=== PATIENT | female | born 1945 | race Caucasian/White ===

== ENCOUNTER → 2017-02-19 | Outpatient (CLI) | payer OTHER ==
[2017-02-19 08:30] LABS: Basophils # (auto) 0 uL; Basophils % (auto) 0.7 % (0.0-2.0); CONDITION Y; Eosinophils # (auto) 0.2 uL; Eosinophils % (auto) 2.2 % (0.0-7.0); Hematocrit 42.2 % (36.0-46.0); Hemoglobin 14.3 g/dL (12.2-16.2); Lymphocytes # (auto) 2.6 uL; Lymphocytes % (auto) 34.4 % (10.0-50.0); Mean Corpuscular Hemoglobin 30.6 pg (28.0-32.0); Mean Corpuscular Hgb Conc. 33.9 g/dL (32.0-36.0); Mean Corpuscular Volume 90.3 fL (80.0-100.0); Mean Platelet Volume 8.7 fL (7.4-10.4); Monocytes # (auto) 0.5 uL; Monocytes % (auto) 6.8 % (0.0-12.0); Neutrophils # (auto) 4.2 uL; Neutrophils % (auto) 55.9 % (37.0-80.0); Platelet Count (auto) 284 10^3/uL (140-450); Red Cell Distribution Width 14.1 % (11.6-16.0); White Blood Cell 7.5 10^3/uL (4.4-10.8)
[2017-02-19 08:32] LABS: Urine Bilirubin Negative (Negative); Urine Blood Negative /uL (Negative); Urine Color Yellow (Yellow); Urine Glucose Normal (Normal); Urine Ketone Negative (Negative); Urine Mucus FEW (None Seen); Urine Nitrite Negative (Negative); Urine RBC 2 /hpf (0 - 4); Urine Squamous Epithelial Cell MOD /hpf (<5); Urine Urobilinogen Normal (Negative)
[2017-02-19 09:05] LABS: Albumin 3.5 g/dL (3.4-5.0); BUN/Creatinine Ratio 18.6; Bilirubin, Total 0.8 mg/dL (0.2-1.0); Calcium 8.8 mg/dL (8.5-10.1); Total Protein 7.2 g/dL (6.4-8.2)
== END | disposition home or self-care (01) ==
LOC: LAB 07:03
PROVIDERS: ATTEND Nurse Practitioner
DX: I10 Essential (primary) hypertension (principal); Z68.29 Body mass index [BMI] 29.0-29.9, adult; Z12.11 Encounter for screening for malignant neoplasm of colon
CPT/HCPCS: 36415; 80053; 80061; 81001; 82270; 83036; 84443; 85025

== ENCOUNTER 2017-09-11 08:26 | Day surgery (SDC) | payer OTHER ==
[2017-09-10 12:38] LABS: Basophils # (auto) 0.1 uL; Eosinophils # (auto) 0.1 uL; Eosinophils % (auto) 1.1 % (0.0-7.0); Hemoglobin 14.7 g/dL (12.2-16.2); Lymphocytes # (auto) 2.4 uL; Lymphocytes % (auto) 28.6 % (10.0-50.0); Mean Corpuscular Hemoglobin 30.7 pg (28.0-32.0); Mean Corpuscular Hgb Conc. 34.1 g/dL (32.0-36.0); Monocytes # (auto) 0.7 uL; Monocytes % (auto) 8.5 % (0.0-12.0); Neutrophils # (auto) 5.1 uL; Neutrophils % (auto) 60.8 % (37.0-80.0); Platelet Count (auto) 292 10^3/uL (140-450); Red Blood Cells 4.78 10^6/uL (4.0-5.20); Red Cell Distribution Width 13.9 % (11.8-14.3); White Blood Cell 8.5 10^3/uL (4.4-10.8)
[2017-09-10 12:56] LABS: INR 0.94 (0.9-1.15); Partial Thromboplastin Time 25.8 sec (22.64-33.71); Prothrombin Time 10.2 sec (9.37-12.3)
[2017-09-10 12:57] LABS: Albumin 3.7 g/dL (3.4-5.0); BUN/Creatinine Ratio 28.6; Bilirubin, Total 0.5 mg/dL (0.2-1.0); Calcium 8.7 mg/dL (8.5-10.1); Potassium 3.7 mmol/L (3.5-5.1); Total Protein 7.6 g/dL (6.4-8.2)
[~2017-09-11] VITALS: Ht 149.9 cm; Wt 65.8 kg
[~2017-09-11 08:26] MED LIST: AMLO1TAB92 PO; ATOR20TA50 PO; HYDR12.56 PO
[2017-09-11] MEDS ORDERED: ceFAZolin 1GM/50ML 50 ML IV ONE (09:43)
[2017-09-11] MEDS ORDERED: BUPIVACAINE 0.25% INJ 50ML VIAL ONE (09:45)
[2017-09-11] MEDS ORDERED: MIDAZOLAM HCL 1MG/1ML-2 ML VIAL ONE (09:57)
[2017-09-11] MEDS ORDERED: LIDOCAINE HCL 2 %PF INJ 10ML AMP IJ ONE (09:57)
[2017-09-11] MEDS ORDERED: LIDOCAINE HCL 2% TOP JELLY 5ML TOP ONE (09:59)
[2017-09-11] MEDS ORDERED: PROPOFOL 10 MG/ML 20 ML IV ONE (09:59)
[2017-09-11] MEDS ORDERED: fentaNYL CITRATE 100 MCG/2 ML VL ONE (10:09)
[2017-09-11] MEDS ORDERED: KETOROLAC TROMETH 30 MG/ML 1ML VIAL ONE (10:28)
[2017-09-11] MEDS ORDERED: ONDANSETRON HCL 4 MG/2 ML VIAL IV ONE (10:30)
[2017-09-11] MEDS ORDERED: hydrALAZINE HCL 20 MG/ML VL IV PRN (10:30)
[2017-09-11] MEDS ORDERED: MORPHINE SULFATE 4 MG/ML SYR/VIAL IV PRN (10:30)
[2017-09-11] MEDS ORDERED: NALOXONE HCL 0.4 MG/ML VIAL IV PRN (10:30)
[2017-09-11 11:51] VITALS: BP 128/77
== END 2017-09-11 11:51 | disposition home or self-care (01) ==
LOC: SUR 08:26
PROVIDERS: ATTEND Surgery
DX: M67.432 Ganglion, left wrist (principal); E66.9 Obesity, unspecified; Z68.29 Body mass index [BMI] 29.0-29.9, adult; Z88.8 Allergy status to other drugs, medicaments and biological substances; I10 Essential (primary) hypertension; E78.00 Pure hypercholesterolemia, unspecified
CPT/HCPCS: 25111; 36415; 80053; 85025; 85610; 85730; 88304; J0690; J1885; J2250; J2704; J3010; J3490

== ENCOUNTER → 2017-10-29 | Outpatient (CLI) | payer OTHER ==
[2017-10-29 08:40] LABS: Basophils # (auto) 0 uL; Basophils % (auto) 0.7 % (0.0-2.0); Eosinophils # (auto) 0.1 uL; Eosinophils % (auto) 1.5 % (0.0-7.0); Hematocrit 42.7 % (36.0-46.0); Hemoglobin 14.5 g/dL (12.2-16.2); Lymphocytes % (auto) 30.1 % (10.0-50.0); Mean Corpuscular Hemoglobin 30.7 pg (28.0-32.0); Mean Corpuscular Volume 90.4 fL (80.0-100.0); Monocytes # (auto) 0.6 uL; Monocytes % (auto) 8.3 % (0.0-12.0); Neutrophils % (auto) 59.4 % (37.0-80.0); Platelet Count (auto) 249 10^3/uL (140-450); Red Blood Cells 4.73 10^6/uL (4.0-5.20); Red Cell Distribution Width 13.5 % (11.8-14.3); White Blood Cell 6.7 10^3/uL (4.4-10.8)
[2017-10-29 08:52] LABS: Urine Bacteria FEW /hpf (None Seen); Urine Blood Negative /uL (Negative); Urine Specific Gravity 1.014 (1.001-1.035); Urine WBC 8 /hpf (0 - 5)
[2017-10-29 09:35] LABS: Albumin 3.6 g/dL (3.4-5.0); BUN/Creatinine Ratio 15.2; Bilirubin, Total 0.7 mg/dL (0.2-1.0); Calcium 8.5 mg/dL (8.5-10.1); Potassium 3.4 mmol/L (3.5-5.1); Total Protein 7.3 g/dL (6.4-8.2)
== END | disposition home or self-care (01) ==
LOC: LAB 07:22
PROVIDERS: ATTEND Nurse Practitioner
DX: E78.5 Hyperlipidemia, unspecified (principal); I10 Essential (primary) hypertension; E78.00 Pure hypercholesterolemia, unspecified
CPT/HCPCS: 36415; 80053; 80061; 81001; 83036; 84443; 85025

== ENCOUNTER → 2018-08-22 | Outpatient (CLI) | payer OTHER ==
[2018-08-22 07:39] LABS: Basophils # (auto) 0.1 uL; Basophils % (auto) 0.8 % (0.0-2.0); Eosinophils # (auto) 0.1 uL; Eosinophils % (auto) 1.6 % (0.0-7.0); Hematocrit 40.2 % (36.0-46.0); Hemoglobin 14.1 g/dL (12.2-16.2); Lymphocytes # (auto) 2.3 uL; Lymphocytes % (auto) 30.9 % (10.0-50.0); Mean Corpuscular Hemoglobin 31.4 pg (28.0-32.0); Mean Corpuscular Volume 89.8 fL (80.0-100.0); Monocytes # (auto) 0.7 uL; Monocytes % (auto) 9.1 % (0.0-12.0); Neutrophils # (auto) 4.3 uL; Neutrophils % (auto) 57.6 % (37.0-80.0); Nucleated Red Blood Cells % 0.1 %; Platelet Count (auto) 268 10^3/uL (140-450); Red Blood Cells 4.48 10^6/uL (4.0-5.20); Red Cell Distribution Width 13.5 % (11.8-14.3); White Blood Cell 7.4 10^3/uL (4.4-10.8)
[2018-08-22 07:44] LABS: Urine Bacteria MANY /hpf (None Seen); Urine Blood 1+ /uL (Negative); Urine Mucus FEW (None Seen); Urine Specific Gravity 1.021 (1.001-1.035); Urine WBC 311 /hpf (0 - 5)
[2018-08-22 08:29] LABS: Albumin 3.5 g/dL (3.4-5.0); Calcium 8.6 mg/dL (8.5-10.1); Potassium 3.6 mmol/L (3.5-5.1)
[2018-08-22 08:35] LABS: BUN/Creatinine Ratio 17.6; Bilirubin, Total 1.2 mg/dL (0.2-1.0); Total Protein 6.9 g/dL (6.4-8.2); Uric Acid 3.6 mg/dL (2.6-6.0)
[2018-08-22 09:48] LABS: Folate (Folic Acid) 17.86 ng/mL (5.38-24)
== END | disposition home or self-care (01) ==
LOC: LAB 07:09
PROVIDERS: ATTEND Nurse Practitioner
DX: E78.5 Hyperlipidemia, unspecified (principal); I10 Essential (primary) hypertension; Z79.899 Other long term (current) drug therapy
CPT/HCPCS: 36415; 80053; 80061; 81001; 82270; 82306; 82607; 82746; 83036; 84443; 84550; 85025

== ENCOUNTER → 2019-03-10 | Outpatient (CLI) | payer OTHER ==
[~2019-03-10] MED LIST changes: +AMLO-297 PO; -AMLO1TAB92 PO
[2019-03-10 09:48] LABS: Potassium 3.3 mmol/L (3.5-5.1)
[2019-03-10 10:11] LABS: Albumin 3.5 g/dL (3.4-5.0); BUN/Creatinine Ratio 14.9; Bilirubin, Total 0.9 mg/dL (0.2-1.0); Calcium 8.7 mg/dL (8.5-10.1); Total Protein 7.2 g/dL (6.4-8.2)
== END | disposition home or self-care (01) ==
LOC: LAB 07:22
PROVIDERS: ATTEND Nurse Practitioner
DX: E78.5 Hyperlipidemia, unspecified (principal)
CPT/HCPCS: 36415; 80053; 80061; 82306; 84443

== ENCOUNTER → 2019-09-18 | Outpatient (CLI) | payer OTHER ==
[2019-09-18 08:10] LABS: Basophils # (auto) 0.1 uL; Basophils % (auto) 1.2 % (0.0-2.0); Eosinophils # (auto) 0.2 uL; Hematocrit 43.1 % (36.0-46.0); Hemoglobin 14.8 g/dL (12.2-16.2); Lymphocytes # (auto) 1.9 uL; Lymphocytes % (auto) 24.9 % (10.0-50.0); Mean Corpuscular Hemoglobin 31.1 pg (28.0-32.0); Mean Corpuscular Hgb Conc. 34.2 g/dL (32.0-36.0); Mean Corpuscular Volume 90.9 fL (80.0-100.0); Monocytes # (auto) 0.6 uL; Monocytes % (auto) 7.5 % (0.0-12.0); Neutrophils # (auto) 4.9 uL; Neutrophils % (auto) 64.4 % (37.0-80.0); Nucleated Red Blood Cells % 0.1 %; Platelet Count (auto) 224 10^3/uL (140-450); Red Blood Cells 4.74 10^6/uL (4.0-5.20); Red Cell Distribution Width 13.7 % (11.8-14.3); White Blood Cell 7.6 10^3/uL (4.4-10.8)
[2019-09-18 08:12] LABS: Urine Bacteria MOD /hpf (None Seen); Urine Blood Negative /uL (Negative); Urine Mucus FEW (None Seen); Urine WBC 6 /hpf (0 - 5)
[2019-09-18 08:51] LABS: Potassium 3.6 mmol/L (3.5-5.1)
[2019-09-18 08:59] LABS: Albumin 3.6 g/dL (3.4-5.0); BUN/Creatinine Ratio 15.4; Bilirubin, Total 0.8 mg/dL (0.2-1.0); Calcium 8.9 mg/dL (8.5-10.1); Total Protein 7.7 g/dL (6.4-8.2)
[2019-09-18 09:01] LABS: Folate (Folic Acid) 20.88 ng/mL (5.38-24)
== END | disposition home or self-care (01) ==
LOC: LAB 07:16
PROVIDERS: ATTEND Nurse Practitioner
DX: Z00.00 Encounter for general adult medical examination without abnormal findings (principal); E78.5 Hyperlipidemia, unspecified
CPT/HCPCS: 36415; 80053; 80061; 81001; 82270; 82306; 82607; 82746; 83036; 84443; 84550; 85025

== ENCOUNTER → 2020-03-22 | Outpatient (CLI) | payer OTHER ==
[2020-03-22 07:42] LABS: Basophils # (auto) 0.1 10 ^3/uL (0-0.2); Eosinophils # (auto) 0.2 10 ^3/uL (0-0.8); Eosinophils % (auto) 2.2 % (0.0-7.0); Hematocrit 42.8 % (36.0-46.0); Hemoglobin 14.2 g/dL (12.2-16.2); Lymphocytes # (auto) 2.7 10 ^3/uL (0.4-5.4); Lymphocytes % (auto) 37.8 % (10.0-50.0); Mean Corpuscular Hemoglobin 30.8 pg (28.0-32.0); Mean Corpuscular Hgb Conc. 33.1 g/dL (32.0-36.0); Mean Corpuscular Volume 92.9 fL (80.0-100.0); Monocytes # (auto) 0.6 10 ^3/uL (0-1.3); Monocytes % (auto) 8.6 % (0.0-12.0); Neutrophils # (auto) 3.7 10 ^3/uL (1.6-8.6); Neutrophils % (auto) 50.4 % (37.0-80.0); Nucleated Red Blood Cells % 0.1 %; Platelet Count (auto) 279 10^3/uL (140-450); Red Blood Cells 4.61 10^6/uL (4.0-5.20); Red Cell Distribution Width 13.3 % (11.8-14.3); White Blood Cell 7.3 10^3/uL (4.4-10.8)
[2020-03-22 08:39] LABS: Albumin 3.6 g/dL (3.4-5.0); BUN/Creatinine Ratio 14.7; Bilirubin, Total 0.7 mg/dL (0.2-1.0); Total Protein 7.2 g/dL (6.4-8.2)
== END | disposition home or self-care (01) ==
LOC: LAB 07:20
PROVIDERS: ATTEND Nurse Practitioner
DX: E78.5 Hyperlipidemia, unspecified (principal)
CPT/HCPCS: 36415; 80053; 80061; 85025

== ENCOUNTER → 2021-12-04 | Outpatient (CLI) | payer OTHER ==
[2021-12-04 08:26] LABS: Albumin 3.4 g/dL (3.4-5.0); Calcium 9.2 mg/dL (8.5-10.1); Potassium 3.8 mmol/L (3.5-5.1)
[2021-12-04 08:29] LABS: Urine Bacteria MANY /hpf (None Seen); Urine Blood Negative /uL (Negative); Urine Budding Yeast OCCASIONAL /hpf (None Seen); Urine Specific Gravity 1.012 (1.001-1.035); Urine WBC 1 /hpf (0 - 5)
[2021-12-04 08:30] LABS: Basophils # (auto) 0.1 10 ^3/uL (0-0.2); Basophils % (auto) 0.8 % (0.0-2.0); Eosinophils # (auto) 0.1 10 ^3/uL (0-0.8); Eosinophils % (auto) 1.8 % (0.0-7.0); Hematocrit 40.8 % (36.0-46.0); Hemoglobin 14.4 g/dL (12.2-16.2); Lymphocytes # (auto) 2.6 10 ^3/uL (0.4-5.4); Lymphocytes % (auto) 33.3 % (10.0-50.0); Mean Corpuscular Hemoglobin 31.4 pg (28.0-32.0); Mean Corpuscular Hgb Conc. 35.2 g/dL (32.0-36.0); Mean Corpuscular Volume 89.1 fL (80.0-100.0); Monocytes # (auto) 0.6 10 ^3/uL (0-1.3); Monocytes % (auto) 7.5 % (0.0-12.0); Neutrophils # (auto) 4.3 10 ^3/uL (1.6-8.6); Neutrophils % (auto) 56.6 % (37.0-80.0); Nucleated Red Blood Cells % 0.1 %; Red Blood Cells 4.58 10^6/uL (4.0-5.20); Red Cell Distribution Width 13.7 % (11.8-14.3); White Blood Cell 7.7 10^3/uL (4.4-10.8)
[2021-12-04 08:31] LABS: BUN/Creatinine Ratio 13.8; Bilirubin, Total 0.8 mg/dL (0.2-1.0); Total Protein 7.1 g/dL (6.4-8.2)
== END | disposition home or self-care (01) ==
LOC: LAB 07:39
PROVIDERS: ATTEND Nurse Practitioner
DX: E78.5 Hyperlipidemia, unspecified (principal); I10 Essential (primary) hypertension
CPT/HCPCS: 36415; 80053; 80061; 81001; 85025

== ENCOUNTER → 2023-01-25 | Outpatient (CLI) | payer OTHER ==
[~2023-01-25] MED LIST changes: -HYDR12.56 PO; +HYDR12.59 PO
[2023-01-25 08:20] LABS: Basophils # (auto) 0.1 10 ^3/uL (0-0.2); Basophils % (auto) 0.9 % (0.0-2.0); Eosinophils # (auto) 0.1 10 ^3/uL (0-0.8); Eosinophils % (auto) 1.6 % (0.0-7.0); Hematocrit 41.8 % (36.0-46.0); Hemoglobin 14.3 g/dL (12.2-16.2); Lymphocytes # (auto) 2.6 10 ^3/uL (0.4-5.4); Lymphocytes % (auto) 33.1 % (10.0-50.0); Mean Corpuscular Hgb Conc. 34.2 g/dL (32.0-36.0); Mean Corpuscular Volume 90.6 fL (80.0-100.0); Monocytes # (auto) 0.6 10 ^3/uL (0-1.3); Monocytes % (auto) 7.5 % (0.0-12.0); Neutrophils # (auto) 4.5 10 ^3/uL (1.6-8.6); Neutrophils % (auto) 56.9 % (37.0-80.0); Nucleated Red Blood Cells % 0.5 %; Red Blood Cells 4.61 10^6/uL (4.0-5.20); Red Cell Distribution Width 13.3 % (11.8-14.3)
[2023-01-25 08:47] LABS: Urine Bacteria FEW /hpf (None Seen); Urine Blood Negative /uL (Negative); Urine Hyaline Cast FEW /lpf (0 - 2); Urine Specific Gravity 1.013 (1.001-1.035); Urine WBC 5 /hpf (0 - 5)
[2023-01-25 09:16] LABS: Potassium 3.5 mmol/L (3.5-5.1)
[2023-01-25 09:29] LABS: Albumin 3.4 g/dL (3.4-5.0); BUN/Creatinine Ratio 15.2 (10.0-20.0); Bilirubin, Total 0.9 mg/dL (0.2-1.0); Calcium 9.2 mg/dL (8.5-10.1); Total Protein 7.2 g/dL (6.4-8.2)
== END | disposition home or self-care (01) ==
LOC: LAB 07:53
PROVIDERS: ATTEND Nurse Practitioner
DX: I10 Essential (primary) hypertension (principal); E78.5 Hyperlipidemia, unspecified
CPT/HCPCS: 36415; 80053; 80061; 81001; 84443; 85025

== ENCOUNTER → 2023-01-26 | Emergency (ER) | payer OTHER ==
[~2023-01-26] VITALS: Ht 149.9 cm; Wt 62.7 kg
[2023-01-26 18:12] VITALS: BP 177/84
== END | disposition left against medical advice (07) ==
LOC: ER 18:05
DX: M25.561 Pain in right knee (principal); M79.672 Pain in left foot; M25.461 Effusion, right knee; Z53.21 Procedure and treatment not carried out due to patient leaving prior to being seen by health care provider

== ENCOUNTER → 2024-02-07 | Outpatient (CLI) | payer OTHER ==
[2024-02-07 07:53] LABS: Alanine Aminotransferase 11 U/L (7-40); Albumin 4.4 g/dL (3.2-4.8); Alkaline Phosphatase 59 U/L (46-116); Anion Gap 6 (5-15); Aspartate Aminotransferase < 8 U/L (13-40); Bilirubin, Total 1.4 mg/dL (0.2-1.0); Blood Urea Nitrogen 7 mg/dL (9-23); Calcium 9.9 mg/dL (8.7-10.4); Carbon Dioxide 28 mmol/L (20-30); Chloride 107 mmol/L (98-107); Cholesterol 211 mg/dL (< 200); Glucose 106 mg/dL (74-106); HDL Cholesterol 74 mg/dL (40-59); LDL Cholesterol 130 mg/dL (< 100); Potassium 3.7 mmol/L (3.5-5.1); Sodium 141 mmol/L (136-145); Total Protein 6.7 g/dL (5.7-8.2); Triglycerides 107 mg/dL (< 150)
== END | disposition home or self-care (01) ==
LOC: LAB 06:58
PROVIDERS: ATTEND Nurse Practitioner
DX: E78.5 Hyperlipidemia, unspecified (principal)
CPT/HCPCS: 36415; 80053; 80061; 83036

== ENCOUNTER 2025-02-08 07:21 | Outpatient (CLI) | payer OTHER ==
[2025-02-08 08:35] LABS: Hematocrit 41.7 % (36.0-46.0); Hemoglobin 14.3 g/dL (12.2-16.2); Mean Corpuscular Hemoglobin 31.4 pg (28.0-32.0); Mean Corpuscular Volume 91.5 fL (80.0-100.0); Nucleated Red Blood Cells % 0.0 %
[2025-02-08 09:05] LABS: Albumin 4.3 g/dL (3.2-4.8); Alkaline Phosphatase 56 U/L (46-116); Anion Gap 9 (5-15); BUN/Creatinine Ratio 12.3 (10.0-20.0); Calcium 9.9 mg/dL (8.7-10.4); Carbon Dioxide 26 mmol/L (20-31); Chloride 107 mmol/L (98-107); Glucose 92 mg/dL (74-106); Potassium 3.9 mmol/L (3.5-5.1); Sodium 142 mmol/L (136-145); Total Protein 6.5 g/dL (5.7-8.2); Triglycerides 94 mg/dL (< 150)
[2025-02-08 09:06] LABS: Alanine Aminotransferase < 9 U/L (7-40); Bilirubin, Total 1.1 mg/dL (0.2-1.0); Blood Urea Nitrogen 9 mg/dL (9-23); Cholesterol 212 mg/dL (< 200); HDL Cholesterol 70 mg/dL (40-59)
[2025-02-08 13:06] LABS: Urine Protein, UAD Negative (Negative)
== END 2025-02-08 17:00 | disposition home or self-care (01) ==
LOC: LAB 07:21
PROVIDERS: ATTEND Nurse Practitioner
DX: I10 Essential (primary) hypertension (principal); E78.5 Hyperlipidemia, unspecified; R73.9 Hyperglycemia, unspecified
CPT/HCPCS: 36415; 80053; 80061; 81001; 83036; 84443; 85025